=== PATIENT | male | born 1995 | race Hispanic/Latino ===

== ENCOUNTER 2020-02-27 19:27 | Emergency (ER) | payer OTHER ==
[~2020-02-27] VITALS: Ht 172.7 cm; Wt 99.8 kg
--- NOTE | 2020-02-27 20:04 | Emergency Department Note ---
History of Present Illnes History of Present Illness Chief Complaint: General Medicine Complaints History of Present Illness This is a 25 year old male Chief Complaint Comment PT STATES HAS BEEN HAVING URI/FLU LIKE SYMPTOMS FOR OVER 6 WEEKS NOW, COUGH AND DIARRHEA RECURRING FOR PAST 6 WEEKS BUT JUST PAST 2 DAYS STARTED HAVING FEVERS, PT HAD A NEGATIVE COVID TEST AT [facility] 2 DAYS AGO. . Historian: Patient Arrival Mode: Car Onset (how long ago): day(s) (2) Location: cough chest Quality: cough Radiation: Denies non-radiation, Denies back, Denies neck, Denies extremity, Denies abdomen, Denies periumbilical, Denies flank, Denies proximal, Denies distal, Denies other Severity: mild Onset quality: gradual Duration (how long): day(s) (2) Timing of current episode: constant Progression: waxing and waning Context: Denies recent illness, Denies recent surgery, Denies recent immobilization, Denies recent travel, Denies trauma/injury, Denies new medications, Denies hx of DVT/PE, Denies non-compliance w/ medications, Denies other Relieving factors: none Exacerbating factors: none Associated symptoms: Reports cough; Denies denies other symptoms, Denies confusion, Denies chest pain, Denies diaphoresis, Denies fever/chills, Denies headaches, Denies loss of appetite, Denies malaise, Denies nausea/vomiting, Denies rash, Denies seizure, Denies shortness of breath, Denies syncope, Denies weakness, Denies other Treatments prior to arrival: none Past Medical/Family History Physician Review I have reviewed the patient's past medical and family history. Any updates have been documented here. Past Medical History Recent Fever: No Clinical Suspicion of Infectio: No New/Unexplained Change in Ment: No Past Medical History: None Past Surgical History: None Social History Smoking Cessation: Never Smoker Counseling Performed: No Alcohol Use: None Any Illegal Drug Use: No Physically hurt or threatened: No Other Any Pre-Existing Lines (PICC,: No Review of Systems Review of Systems Constitutional: Reports no symptoms EENTM: Reports no symptoms Cardiovascular: Reports no symptoms Respiratory: Reports as per HPI Gastrointestinal: Reports no symptoms Genitourinary: Reports no symptoms Musculoskeletal: Reports no symptoms Integumentary: Reports no symptoms Neurological: Reports no symptoms Psychological: Reports no symptoms Endocrine: Reports no symptoms Hematological/Lymphatic: Reports no symptoms Physical Exam Related Data Allergies: Coded Allergies: No Known Allergies (Unverified , 02/27/20) Triage Vital Signs Vital Signs Date Time Temp Pulse Resp B/P (MAP) Pulse Ox O2 Delivery O2 Flow Rate FiO2 02/27/20 19:39 98.7 91 20 145/92 98 Room Air Vital signs reviewed: Yes Physical Exam CONSTITUTIONAL Constitutional: Present well-developed, Present well-nourished HENT HENT: Present normocephalic, Present atraumatic, Present oropharynx clear/moist, Present nose normal; Absent oropharynx normal, Absent mucosae dry, Absent nasal discharge, Absent nasal congestion, Absent rhinorrhea, Absent oropharyngeal exudate, Absent tonsillar excudate, Absent pharynx abnormal, Absent erythema, Absent dentition normal, Absent dental caries, Absent other HENT L/R: Present left ext ear normal, Present right ext ear normal; Absent left TM normal, Absent right TM normal, Absent left canal normal, Absent right canal normal, Absent left impacted cerumen, Absent right impacted cerumen, Absent left bulging TM, Absent right bulging TM, Absent other EYES Eyes: Reports PERRL, Reports conjunctivae normal; Denies EOM normal, Denies lids normal, Denies left eye discharge, Denies right eye discharge, Denies scleral icterus, Denies other NECK Neck: Present ROM normal PULMONARY Pulmonary: Present effort normal, Present breath sounds normal CARDIOVASCULAR Cardiovascular: Present regular rhythm, Present heart sounds normal, Present capillary refill normal, Present normal rate; Absent irregular rhythm, Absent intact distal pulses, Absent tachycardia, Absent bradycardia, Absent murmur, Absent gallop, Absent friction rub, Absent palpable pulses, Absent strong pulses, Absent weak pulses, Absent LLE edema, Absent RLE edema, Absent other GASTROINTESTINAL Abdominal: Present soft, Present nontender, Present bowel sounds normal; Absent distension, Absent tender, Absent guarding, Absent mass, Absent rebound, Absent hernia, Absent left CVA tenderness, Absent right CVA tenderness, Absent other GENITOURINARY Genitourinary: Present exam deferred; Absent penis normal, Absent rectum normal, Absent prostate normal, Absent guaiac result, Absent penis tenderness, Absent other SKIN Skin: Present warm, Present dry; Absent erythema, Absent pale, Absent rash, Absent jaundiced, Absent bruising, Absent lesion, Absent other MUSCULOSKELETAL Musculoskeletal: Present ROM normal; Absent edema, Absent deformity, Absent tenderness, Absent swelling, Absent other NEUROLOGICAL Neurological: Present alert, Present oriented x 3, Present no gross motor or sensory deficits PSYCHOLOGICAL Psychological: Present mood/affect normal, Present judgement normal Results Imaging Imaging results reviewed: Yes Assessment & Plan Medical Decision Making MDM bronchitis pneumonia Reassessment Reassessment better Assessment & Plan Final Impression: (1) Acute bronchitis Depart Disposition: HOME, SELF-CARE Last Vital Signs Date Time Temp Pulse Resp B/P (MAP) Pulse Ox O2 Delivery O2 Flow Rate FiO2 02/27/20 19:39 98.7 91 20 145/92 98 Room Air IAVNNA CEDEÑO MD Feb 27, 2020 20:04
[2020-02-27] MEDS ORDERED: CEFDINIR300 MG PO (20:06)
--- NOTE | 2020-02-27 20:11 | Diagnostic Imaging Report ---
EXAMINATION: CXR [facility] INDICATION: ^cough ^[id number] ^1949 COMPARISON: None FINDINGS: TUBES and LINES: None. LUNGS: Normal lung volumes. No focal opacity or consolidation. PLEURA: No pleural effusion or pneumothorax. HEART AND MEDIASTINUM: The cardiomediastinal silhouette is unremarkable. BONES AND SOFT TISSUES: No acute osseous lesion. Soft tissues are unremarkable. UPPER ABDOMEN: No free air under the diaphragm. IMPRESSION: No acute thoracic radiographic abnormality. Signed by: Dr. Marko Jean-Baptiste M.D. on 02/27/2020 8:08 PM
== END 2020-02-27 20:21 | disposition home or self-care (01) ==
LOC: FSED 20:02
DX: J20.9 Acute bronchitis, unspecified (principal); R05 Cough; R19.7 Diarrhea, unspecified
CPT/HCPCS: 71045; 99283